=== PATIENT | male | born 1970 | race Caucasian/White ===

== ENCOUNTER → 2019-03-12 | Outpatient (CLI) | payer BC ==
--- NOTE | 2019-03-12 11:37 | CONS ---
CONSULTATION DATE OF SERVICE: 03/12/2019 This 48-year-old gentleman had been evaluated in the sleep center for obstructive sleep apnea-hypopnea syndrome. HISTORY OF PRESENT ILLNESS/SLEEP-WAKE EVALUATION: Patient has history of obstructive sleep apnea for more than 20 years. Last sleep study done more than 10 years. The patient continued to use his CPAP equipment every night. His sleep schedule from 9:10 p.m. until 4 a.m. on working days and from 10 to 11 p.m. to 6 a.m. on days off. He does have problems sometimes with falling asleep. No TV in bedroom. He sleeps in different position with grinding teeth and multiple awakenings from sleep more than 10 times while using his CPAP equipment. He had 2 episodes of nocturia during the night. He increased his weight from 275 pounds, up to 330 pounds now. In the morning he wakes up tired, about his sleep, has problem with concentration, irritability and anxiety. [place] Sleepiness Scale increased to 12. I checked his CPAP unit. CPAP pressure is 10 cm of water. The patient does not have information about apnea-hypopnea index. No history of hypnagogic hallucinations, sleep paralysis or cataplexy. PAST MEDICAL HISTORY: Positive for hyperlipidemia. PAST SURGICAL HISTORY: UPPP, right shoulder surgery, left hand surgery, chest surgery for pectoral muscle trauma secondary to sport activity, nasal surgery for nasal septum deviation. SOCIAL HISTORY: Negative for smoking. Alcohol consumption occasional. MEDICATIONS: Lipitor. FAMILY HISTORY: Hypertension, heart problems, arthritis, emphysema, sleep apnea, snoring, possible cancer. REVIEW OF SYSTEMS: Multiple awakenings from sleep even while patient using CPAP equipment. Sleepiness during the day. PHYSICAL EXAMINATION: During physical exam, a 48-year-old gentleman without distress. VITAL SIGNS BP 146/87, HR 91, RR 18, height 6 feet 3-1/2 inches, weight 330.2 pounds, BMI 40.7, temperature 98.7, Oxygen saturation at room air 97%. HEENT PERRLA, EOMI. Oropharynx showed extremely low position of soft palate Mallampati 4. Wide neck, 25.5 inches circumference. NECK: Supple, no JVD. Thyroid is not palpable. LUNGS: Clear to percussion and to auscultation. Good air exchange. No wheezing or rhonchi. HEART: S1, S2 regular. No murmurs, gallops, or rubs. ABDOMEN: Obese. EXTREMITIES: No clubbing or cyanosis. PATHOLOGY TEACHER: Awake, alert, and oriented X3. Cranial nerves 2 to 7 intact. There is no fasciculation or atrophy. noted. No focal deficits observed. IMPRESSION: 1. Obstructive sleep apnea-hypopnea syndrome for more than 20 years. Last sleep study more than 10 years ago. The patient continued to use his CPAP equipment which is old and has more than 10 times awakenings from sleep and sleepiness during the day. Extremely low position of soft palate, Mallampati 4. Restriction of nasal breathing. Wide neck. Obstructive sleep apnea-hypopnea syndrome. Presently CPAP not fully effective. 2. Obesity, body mass index 40.7. Patient increased his weight for the last years around 50 pounds. 3. Hyperlipidemia. 4. Status post UPPP. 5. Status post surgery for nasal septum deviation. 6. Status post left shoulder surgery. 7. Status post right hand surgery. 8. Status post chest surgery for pectoral muscle damage secondary to sport activity. PLAN: 1. Repeat CPAP titration for evaluation of effective CPAP pressure at the present time. 2. Aggressive losing weight program. 3. Sleep hygiene with regular time in bed for at least 7-1/2 hours. 4. No driving if feeling any sleepiness. 5. Prescription for all necessary CPAP supplies. Thank you very much for allowing me to participate in the management of your patient. Sincerely, Nader Victoria MD, PhD, FAASM Diplomat of [place] [employer] [place] [employer] [employer] [facility] [place] MMODL / [place]: [id number] /
== END ==
LOC: SLEEP 09:52
PROVIDERS: ATTEND Internal Medicine
DX: G47.33 Obstructive sleep apnea (adult) (pediatric) (principal); E66.9 Obesity, unspecified; E78.5 Hyperlipidemia, unspecified; Z98.890 Other specified postprocedural states; Z99.89 Dependence on other enabling machines and devices; Z79.899 Other long term (current) drug therapy
CPT/HCPCS: 99201